=== PATIENT | female | born 1965 | race Caucasian/White ===

== ENCOUNTER 2022-09-22 02:46 | Outpatient (CLI) | payer MEDICAID | END 2022-09-22 02:47 | disposition critical access hospital (66) | LOC: EMS 02:46 | DX: M79.602 Pain in left arm (principal); R22.32 Localized swelling, mass and lump, left upper limb | CPT/HCPCS: A0425; A0429; A0999 ==

== ENCOUNTER 2022-09-22 03:01 | Emergency (ER) | payer MEDICAID ==
--- NOTE | 2022-09-22 03:15 | ED Physician Documentation ---
History of Present Illness - Stated complaint Stated Complaint: BUG BITE - Chief complaint Chief Complaint: Ext Problem - History obtained from History obtained from: Patient - History of Present Illness Timing: Today Pain level now: 6 Improved by: rest Worsened by: movement, palpation - Additonal information Additional information: BIBA. HPI from patient. She c/o left wrist pain since earlier this evening, gradual onset, associated with redness and swelling. She is right-hand dominant. She says she had two or three falls today but the pain was not specifically associated with an injury including these falls. Denies fever, denies h/o similar symptoms. Review of Systems Constitutional: denies: Fever, Chills, Sweats Skin: reports: Rash Musculoskeletal: reports: Extremity pain, Extremity swelling Neurologic: denies: Focal weakness, Numbness PD PAST MEDICAL HISTORY - Past Medical History Past Medical History: No - Present Medications Home Medications: Ambulatory Orders Medication Instructions Recorded Confirmed Doxycycline [Vibramycin] 100 mg PO BID #19 tablet 09/22/22 HYDROcod/ACETAM 5/325 [Henderson 5/325] 1 - 2 tablet PO Q6H PRN #14 tablet 09/22/22 Ondansetron Odt [Zofran Odt] 4 mg TL Q6H PRN #14 tablet 09/22/22 - Allergies Allergies/Adverse Reactions: Allergies Allergy/AdvReac Type Severity Reaction Status Date / Time codeine Allergy Anaphylaxis Verified 09/22/22 03:09 meperidine [From Demerol] Allergy Anaphylaxis Verified 09/22/22 03:09 morphine Allergy Anaphylaxis Verified 09/22/22 03:09 Penicillins Allergy Unknown Verified 09/22/22 03:19 PD ED PE NORMAL - Vitals Vital signs reviewed: Yes - General General: Alert and oriented X 3, Well developed/nourished, Other (appears uncomfortable and anxious at times) PD ED PE EXPANDED - Extremities DEREK UE/Hands Visual: 1 - rash (confluent erythema with sharp margins, no fluctuance), swelling, tenderness Results - Vitals Vitals: Vital Signs - 24 hr 09/22/22 09/22/22 09/22/22 03:05 03:43 04:58 Temperature 36.4 C L 36.8 C Heart Rate 78 81 76 Respiratory 18 18 18 Rate Blood Pressure 189/84 H 182/79 H 145/72 H O2 Saturation 97 99 94 09/22/22 09/22/22 05:30 05:50 Temperature 37.2 C Heart Rate 70 70 Respiratory 16 16 Rate Blood Pressure 141/66 H 147/79 H O2 Saturation 98 98 Oxygen O2 Source Room air - Rads (name of study) left wrist xrays Radiology: Prelim report reviewed, EMP read indepedently, See rad report PD Medical Decision Making - ED course Complexity details: reviewed results, re-evaluated patient, considered differential, d/w patient ED course: left wrist pain, swelling, erythema. She says she fell a few times today and that she has chronic decreased sensation LUE (unclear as to why), and thus xrays left wrist undertaken; the xrays are unremarkable. Exam is c/w cellulitis. She is given vicodin and doxycycline (as well as zofran for mild nausea) and she reports significant improvement in discomfort on reevaluation. Prescription for these medications provided. Return precautions discussed Departure - Departure Disposition: 01 Home, Self Care Clinical Impression: Cellulitis Condition: Good Instructions: ED Infec Skin Cellulitis Prescriptions: HYDROcod/ACETAM 5/325 [Henderson 5/325] 1 - 2 tablet PO Q6H PRN #14 tablet PRN Reason: Pain Doxycycline [Vibramycin] 100 mg PO BID #19 tablet Ondansetron Odt [Zofran Odt] 4 mg TL Q6H PRN #14 tablet PRN Reason: Nausea / Vomiting Discharge Date/Time: 09/22/22 05:54
[2022-09-22] MEDS ORDERED: HYDROcod/ACETAM 5/325 MG TABLET PO STA (03:28)
[2022-09-22] MEDS ORDERED: ONDANSETRON ODT 4 MG TABLET TL STA (03:29)
[2022-09-22] MEDS ORDERED: DOXYCYCLINE 100 MG TABLET PO STA (04:25)
[2022-09-22 05:54] VITALS: BP 147/79
--- NOTE | 2022-09-22 07:57 | XRAY Report ---
PROCEDURE: Wrist 3 View LT INDICATIONS: swelling, pain, tenderness, recent falls TECHNIQUE: 3 views of the wrist were acquired. COMPARISON: Not available. FINDINGS: Bones: No fractures or dislocations. No suspicious bony lesions. Soft tissues: No suspicious soft tissue calcifications. Soft tissue swelling. IMPRESSION: There is a soft tissue swelling. No acute osseous abnormalities. No significant discrepancy with the preliminary interpretation. Reviewed by: Grabiel Rachel MD on 09/22/2022 7:56 AM PST Approved by: Grabiel Rachel MD on 09/22/2022 7:56 AM PST Station ID: [id number]
== END 2022-09-22 05:54 | disposition home or self-care (01) ==
LOC: ED 03:01
DX: L03.114 Cellulitis of left upper limb (principal); R11.0 Nausea
CPT/HCPCS: 73110; 99283; A9270; Q0162